=== PATIENT | female | born 1940 | race Caucasian/White ===

== ENCOUNTER → 2016-06-01 | Outpatient (REF) | payer MEDICARE ==
[2016-06-01 11:00] LABS: BASOPHILS % (AUTO) 0 % (0-2); EOSINOPHILS # (AUTO) 0.5 10^3uL; EOSINOPHILS % (AUTO) 3 % (0-4); LYMPHOCYTES # (AUTO) 0.9 X10^3; MEAN CORPUSCULAR VOLUME 81 FL (80-100); MEAN PLATELET VOLUME 10.3 FL (6.0-9.5); MONOCYTES # (AUTO) 1.7 X10^3; MONOCYTES % (AUTO) 11 % (3-11); NEUTROPHILS # (AUTO) 12.2 X10^3; NEUTROPHILS % (AUTO) 79 % (51-67); PLATELET COUNT 367 10^3uL (150-450); WHITE BLOOD COUNT 15.45 10^3uL (4.0-11.0)
[2016-06-01 11:08] LABS: ALBUMIN 2.8 g/dL (3.4-5.0); CALCULATED IONIZED CALCIUM 3.9 mg/dL (3.8-4.6); PHOSPHORUS 3.8 mg/dL (2.4-4.9); TOTAL PROTEIN 6.9 g/dL (6.4-8.5)
[2016-06-01 11:14] LABS: MEAN CORPUSCULAR HEMOGLOBIN 25.6 PG (26.0-34.0); MEAN CORPUSCULAR HGB CONC 31.6 g/dL (31.0-37.0)
== END ==
LOC: LAB 08:20
PROVIDERS: ATTEND Internal Medicine Hematology & Oncology
DX: C20 Malignant neoplasm of rectum (principal)
CPT/HCPCS: 80053; 83735; 84100; 84478; 85025

== ENCOUNTER → 2016-06-03 | Outpatient (REF) | payer MEDICARE ==
[~2016-06-03] MED LIST: ALBU8.5H2 IH; CEFD300C PO; DOCU100C8 PO; FLUT1DIS INH; FLUT1DIS2 IH; FURO-124 PO; LOSA1TAB19 PO; LSRT50T PO; MAGN400O7 PO; ONDA8TAB13 PO; OXYC1TAB12 PO; OXYC1TAB87 PO; POLY17PO2 PO; TRAM-25 PO
== END ==
LOC: LAB 15:36
PROVIDERS: ATTEND Family Medicine
DX: C20 Malignant neoplasm of rectum (principal)
CPT/HCPCS: 87040

== ENCOUNTER → 2016-06-07 | Outpatient (REF) | payer MEDICARE ==
[2016-06-07 09:39] LABS: MEAN CORPUSCULAR VOLUME 80 FL (80-100); MEAN PLATELET VOLUME 9.9 FL (6.0-9.5); PLATELET COUNT 535 10^3uL (150-450); WHITE BLOOD COUNT 13.95 10^3uL (4.0-11.0)
[2016-06-07 09:44] LABS: MEAN CORPUSCULAR HEMOGLOBIN 25.2 PG (26.0-34.0); MEAN CORPUSCULAR HGB CONC 31.6 g/dL (31.0-37.0)
[2016-06-07 09:46] LABS: BAND NEUTROPHILS % 4 % (0-6); EOSINOPHILS % 3 % (0-4); LYMPHOCYTES # 0.6 #; MONOCYTES # 0.8 #; MONOCYTES % 6 % (3-11); RBC MORPH SEE REFERENCE (NORMAL); SEGMENTED NEUTROPHILS % 83 % (51-67); TOTAL CELLS COUNTED 100
[2016-06-07 09:47] LABS: ALBUMIN 2.6 g/dL (3.4-5.0); ANISOCYTOSIS SLIGHT; CALCULATED IONIZED CALCIUM 3.7 mg/dL (3.8-4.6); PHOSPHORUS 3.8 mg/dL (2.4-4.9); POIKILOCYTOSIS SLIGHT; TOTAL PROTEIN 7.2 g/dL (6.4-8.5)
== END ==
LOC: LAB 08:27
PROVIDERS: ATTEND Internal Medicine Hematology & Oncology
DX: Z00.00 Encounter for general adult medical examination without abnormal findings (principal); C20 Malignant neoplasm of rectum; E63.8 Other specified nutritional deficiencies; Z99.89 Dependence on other enabling machines and devices
CPT/HCPCS: 80053; 83735; 84100; 84478; 85025

== ENCOUNTER → 2016-06-14 | Outpatient (REF) | payer MEDICARE ==
[2016-06-14 08:50] LABS: BASOPHILS % (AUTO) 0 % (0-2); EOSINOPHILS # (AUTO) 0.4 10^3uL; EOSINOPHILS % (AUTO) 3 % (0-4); LYMPHOCYTES # (AUTO) 1.4 X10^3; MEAN PLATELET VOLUME 9.8 FL (6.0-9.5); MONOCYTES # (AUTO) 1.7 X10^3; MONOCYTES % (AUTO) 11 % (3-11); NEUTROPHILS # (AUTO) 11.9 X10^3; NEUTROPHILS % (AUTO) 76 % (51-67); PLATELET COUNT 501 10^3uL (150-450); WHITE BLOOD COUNT 15.56 10^3uL (4.0-11.0)
[2016-06-14 09:04] LABS: MEAN CORPUSCULAR HEMOGLOBIN 24.8 PG (26.0-34.0); MEAN CORPUSCULAR HGB CONC 31.2 g/dL (31.0-37.0); MEAN CORPUSCULAR VOLUME 79 FL (80-100)
[2016-06-14 09:06] LABS: ALBUMIN 2.5 g/dL (3.4-5.0); ANION GAP 13.3 MEQ/L (3-15); CALCULATED IONIZED CALCIUM 3.8 mg/dL (3.8-4.6); PHOSPHORUS 3.6 mg/dL (2.4-4.9); TOTAL PROTEIN 6.9 g/dL (6.4-8.5)
== END ==
LOC: LAB 08:00
PROVIDERS: ATTEND Internal Medicine Hematology & Oncology
DX: Z00.00 Encounter for general adult medical examination without abnormal findings (principal); C20 Malignant neoplasm of rectum; E63.8 Other specified nutritional deficiencies; E44.0 Moderate protein-calorie malnutrition; Z99.89 Dependence on other enabling machines and devices
CPT/HCPCS: 80053; 83735; 84100; 84478; 85025

== ENCOUNTER → 2016-06-21 | Outpatient (REF) | payer MEDICARE ==
[2016-06-21 09:45] LABS: BASOPHILS % (AUTO) 0 % (0-2); EOSINOPHILS # (AUTO) 0.5 10^3uL; EOSINOPHILS % (AUTO) 4 % (0-4); LYMPHOCYTES # (AUTO) 1.3 X10^3; MEAN CORPUSCULAR HGB CONC 31.9 g/dL (31.0-37.0); MEAN PLATELET VOLUME 9.7 FL (6.0-9.5); MONOCYTES # (AUTO) 1.6 X10^3; MONOCYTES % (AUTO) 12 % (3-11); NEUTROPHILS # (AUTO) 9.6 X10^3; NEUTROPHILS % (AUTO) 73 % (51-67); PLATELET COUNT 502 10^3uL (150-450); WHITE BLOOD COUNT 13.16 10^3uL (4.0-11.0)
[2016-06-21 09:50] LABS: ALBUMIN 2.6 g/dL (3.4-5.0); ANION GAP 16.1 MEQ/L (3-15); CALCULATED IONIZED CALCIUM 3.8 mg/dL (3.8-4.6); PHOSPHORUS 3.8 mg/dL (2.4-4.9); TOTAL PROTEIN 7.3 g/dL (6.4-8.5)
[2016-06-21 10:03] LABS: MEAN CORPUSCULAR HEMOGLOBIN 24.7 PG (26.0-34.0); MEAN CORPUSCULAR VOLUME 78 FL (80-100)
== END ==
LOC: LAB 08:03
PROVIDERS: ATTEND Internal Medicine Hematology & Oncology
DX: Z00.00 Encounter for general adult medical examination without abnormal findings (principal); C20 Malignant neoplasm of rectum; Z79.899 Other long term (current) drug therapy; E63.8 Other specified nutritional deficiencies
CPT/HCPCS: 80053; 83735; 84100; 84478; 85025

== ENCOUNTER → 2016-06-23 | Outpatient (CLI) | payer MEDICARE | LOC: RAD 09:58 | PROVIDERS: ATTEND Internal Medicine Hematology & Oncology | DX: C20 Malignant neoplasm of rectum (principal) | CPT/HCPCS: 71250; 74176 ==

== ENCOUNTER 2016-06-28 15:17 | Outpatient (RCR) | payer MEDICARE ==
[2016-06-29] VITALS (12 sets, daily range): BP systolic 80–147; BP diastolic 51–83
[2016-06-29] MEDS ORDERED: SODIUM CHLORIDE FLUSH 10 ML SYR IV PRN (11:50)
[2016-06-29] MEDS ORDERED: LMX 4 KIT (LIDOCAINE 4% 5 GM TUBE/TRANSPARENT DRESSING) TOP PRN (11:50)
[2016-06-29] MEDS ORDERED: SODIUM CHLORIDE FLUSH 3 ML SYR IV PRN (11:50)
[2016-06-29] MEDS ORDERED: ACETAMINOPHEN 325 MG TAB (TYLENOL) PO SCH (12:00)
[2016-06-29] MEDS ORDERED: NS 250 ML (IVPB) BAG IV SCH (12:00)
[2016-06-29] MEDS ORDERED: diphenhydrAMINE 25 MG (BENADRYL) TABLET PO SCH (12:00)
--- NOTE | 2016-06-29 12:06 | NUR ---
1st unit of PRBCs started at 1206 at 125cc/hr. VS taken according to policy for transfusions. Pt had port accessed before her arrival to the unit. Lunch ordered for pt. Monitor applied. Tylenol and Benadryl po given as pre meds as ordered.
--- NOTE | 2016-06-29 14:20 | NUR ---
1st unit of PRBCs infused.
--- NOTE | 2016-06-29 14:25 | NUR ---
Second unit of PRBC's started at 1425 per pump infusing at 125cc/hr.
--- NOTE | 2016-06-29 15:25 | NUR ---
At 1525 pt had a bout of nausea, which she states she has everyday. BP went up to 147/83.
--- NOTE | 2016-06-29 16:30 | NUR ---
2nd unit of PRBCs infused. Port flushed with 13 cc of NS. Port was not de accessed due to pt receiving TPN everyday at home.
--- NOTE | 2016-06-29 16:50 | NUR ---
Pt left ambulatory to home with daughter.
== END 2016-06-29 16:50 | disposition home or self-care (01) ==
LOC: LAB 15:17 → ICU 06-29 11:35 → EUOP 06-29 16:50
PROVIDERS: ATTEND Internal Medicine Hematology & Oncology
DX: D64.9 Anemia, unspecified (principal)
CPT/HCPCS: 36415; 85014; 85018; 86850; 86900; 86901; 86920; A9270; J7050; P9040; 36430

== ENCOUNTER → 2016-06-28 | Outpatient (REF) | payer MEDICARE ==
[2016-06-28 08:55] LABS: BASOPHILS % (AUTO) 0 % (0-2); EOSINOPHILS # (AUTO) 0.6 10^3uL; EOSINOPHILS % (AUTO) 5 % (0-4); LYMPHOCYTES # (AUTO) 1.2 X10^3; MEAN PLATELET VOLUME 9.2 FL (6.0-9.5); MONOCYTES # (AUTO) 1.2 X10^3; MONOCYTES % (AUTO) 12 % (3-11); NEUTROPHILS # (AUTO) 7.4 X10^3; NEUTROPHILS % (AUTO) 70 % (51-67); PLATELET COUNT 530 10^3uL (150-450); WHITE BLOOD COUNT 10.64 10^3uL (4.0-11.0)
[2016-06-28 09:09] LABS: MEAN CORPUSCULAR HEMOGLOBIN 23.9 PG (26.0-34.0); MEAN CORPUSCULAR VOLUME 77 FL (80-100)
[2016-06-28 09:10] LABS: ALBUMIN 2.6 g/dL (3.4-5.0); ANION GAP 13.6 MEQ/L (3-15); CALCULATED IONIZED CALCIUM 3.9 mg/dL (3.8-4.6); PHOSPHORUS 3.6 mg/dL (2.4-4.9); TOTAL PROTEIN 7.3 g/dL (6.4-8.5)
== END ==
LOC: LAB 08:04
PROVIDERS: ATTEND Internal Medicine Hematology & Oncology
DX: Z00.00 Encounter for general adult medical examination without abnormal findings (principal); C20 Malignant neoplasm of rectum; E63.8 Other specified nutritional deficiencies; E44.0 Moderate protein-calorie malnutrition; Z99.89 Dependence on other enabling machines and devices
CPT/HCPCS: 80053; 83735; 84100; 84478; 85025

== ENCOUNTER → 2016-06-29 | Outpatient (CLI) | payer MEDICARE | LOC: LAB 10:20 | PROVIDERS: ATTEND Internal Medicine Hematology & Oncology | DX: C20 Malignant neoplasm of rectum (principal) | CPT/HCPCS: 36415; 82378; 82607; 82728; 82746; 83540; 83550 ==

== ENCOUNTER → 2016-07-05 | Outpatient (REF) | payer MEDICARE ==
[2016-07-05 09:01] LABS: BASOPHILS % (AUTO) 0 % (0-2); EOSINOPHILS # (AUTO) 0.5 10^3uL; EOSINOPHILS % (AUTO) 4 % (0-4); MEAN CORPUSCULAR HEMOGLOBIN 24.7 PG (26.0-34.0); MEAN CORPUSCULAR HGB CONC 32.2 g/dL (31.0-37.0); MEAN CORPUSCULAR VOLUME 77 FL (80-100); MEAN PLATELET VOLUME 9.4 FL (6.0-9.5); MONOCYTES # (AUTO) 1.3 X10^3; MONOCYTES % (AUTO) 11 % (3-11); NEUTROPHILS # (AUTO) 9.3 X10^3; NEUTROPHILS % (AUTO) 77 % (51-67); PLATELET COUNT 362 10^3uL (150-450); WHITE BLOOD COUNT 12.11 10^3uL (4.0-11.0)
[2016-07-05 09:14] LABS: ALBUMIN 2.7 g/dL (3.4-5.0); ANION GAP 13.7 MEQ/L (3-15); CALCULATED IONIZED CALCIUM 3.7 mg/dL (3.8-4.6); PHOSPHORUS 3.8 mg/dL (2.4-4.9); TOTAL PROTEIN 7.5 g/dL (6.4-8.5)
== END ==
LOC: LAB 08:07
PROVIDERS: ATTEND Internal Medicine Hematology & Oncology
DX: Z00.00 Encounter for general adult medical examination without abnormal findings (principal); E63.8 Other specified nutritional deficiencies; E44.0 Moderate protein-calorie malnutrition
CPT/HCPCS: 80053; 83735; 84100; 84478; 85025

== ENCOUNTER → 2016-07-12 | Outpatient (REF) | payer MEDICARE ==
[2016-07-12 09:11] LABS: MEAN CORPUSCULAR HGB CONC 32.6 g/dL (31.0-37.0); MEAN PLATELET VOLUME 9.7 FL (6.0-9.5); PLATELET COUNT 418 10^3uL (150-450); WHITE BLOOD COUNT 15.13 10^3uL (4.0-11.0)
[2016-07-12 09:12] LABS: MEAN CORPUSCULAR HEMOGLOBIN 25.1 PG (26.0-34.0); MEAN CORPUSCULAR VOLUME 77 FL (80-100)
[2016-07-12 09:19] LABS: BAND NEUTROPHILS % 2 % (0-6); EOSINOPHILS % 6 % (0-4); LYMPHOCYTES # 1.2 #; MONOCYTES # 1.4 #; MONOCYTES % 9 % (3-11); SEGMENTED NEUTROPHILS % 75 % (51-67); TOTAL CELLS COUNTED 100
[2016-07-12 09:20] LABS: ANISOCYTOSIS MODERATE; MICROCYTOSIS SLIGHT; RBC MORPH SEE REFERENCE (NORMAL)
[2016-07-12 09:23] LABS: ALBUMIN 2.5 g/dL (3.4-5.0); ANION GAP 12.5 MEQ/L (3-15); CALCULATED IONIZED CALCIUM 3.7 mg/dL (3.8-4.6); MAGNESIUM* 1.9 mg/dL (1.6-2.3); PHOSPHORUS 2.8 mg/dL (2.4-4.9); TOTAL PROTEIN 7.2 g/dL (6.4-8.5)
== END ==
LOC: LAB 08:04
PROVIDERS: ATTEND Internal Medicine Hematology & Oncology
DX: Z00.00 Encounter for general adult medical examination without abnormal findings (principal); Z79.899 Other long term (current) drug therapy; C20 Malignant neoplasm of rectum; E63.8 Other specified nutritional deficiencies; E44.0 Moderate protein-calorie malnutrition
CPT/HCPCS: 80053; 83735; 84100; 84478; 85025

== ENCOUNTER 2016-07-19 10:29 | Day surgery (SDC) | payer MEDICARE ==
[~2016-07-19] VITALS: Ht 167.6 cm; Wt 42.7 kg
[~2016-07-19 10:29] MED LIST changes: +ACETAMINOPHEN 500 MG TAB (TYLENOL) PO SCH; -ALBU8.5H2 IH; -CEFD300C PO; -DOCU100C8 PO; -FLUT1DIS INH; -FLUT1DIS2 IH; -FURO-124 PO; +LACTATED RINGERS 1,000 ML IV SCH; -LOSA1TAB19 PO; -LSRT50T PO; -MAGN400O7 PO; -ONDA8TAB13 PO; -OXYC1TAB12 PO; -OXYC1TAB87 PO; -POLY17PO2 PO; +SODIUM CHLORIDE FLUSH 3 ML SYR IV SCH; -TRAM-25 PO; +ceFAZolin 2,000 MG in SODIUM CHLORIDE VIAL (PF) 20 ML IV SCH; +oxyCODONE IMMEDIATE RELEASE 5 MG (OXYIR) TAB PO SCH
[2016-07-19 10:56] VITALS: BP 107/63
[2016-07-19] MEDS ORDERED: PROPOFOL 20 ML IV ONE ×2 (11:21)
[2016-07-19] MEDS ORDERED: ALFENTANIL 500 MCG/ML (ALFENTA) 5 ML AMP IV ONE (11:21)
[2016-07-19] MEDS ORDERED: MIDAZOLAM 2 MG/2 ML (VERSED) VIAL ONE (11:21)
[2016-07-19] MEDS ORDERED: BUPIVACAINE/EPINEPHRINE 0.25%-1:200,000 (MARCAINE) 30 ML VIAL INJ ONE (11:32)
[2016-07-19] MEDS ORDERED: HEPARIN 5000 UNIT/0.5 ML SYRINGE ONE (11:32)
[2016-07-19] MEDS ORDERED: LIDOCAINE/EPINEPHRINE 1% 1:100,000 (XYLOCAINE) 30 ML VIAL INJ ONE (11:32)
[2016-07-19] MEDS ORDERED: ONDANSETRON 2 MG/ML (Z0FRAN) 2 ML VIAL ONE (12:19)
[2016-07-19] MEDS ORDERED: diphenhydrAMINE 50 MG/ML INJ (BENADRYL) ONE (12:19)
[2016-07-19] MEDS ORDERED: BACITRACIN/POLYMYXIN OINTMENT 1 PACKET TOP ONE (13:12)
[2016-07-19 13:27] VITALS: BP 86/60
[2016-07-19] MEDS ORDERED: ONDANSETRON 2 MG/ML (Z0FRAN) 2 ML VIAL IV PRN (14:21)
[2016-07-19] MEDS ORDERED: HYDROcodone/APAP 5 MG/325 MG (NORCO) TAB PO PRN (14:21)
[2016-07-19 14:27] VITALS: BP 123/73
== END 2016-07-19 14:46 | disposition home or self-care (01) ==
LOC: ASC 10:29
PROVIDERS: ATTEND Surgery
DX: T82.514A Breakdown (mechanical) of infusion catheter, initial encounter (principal); I10 Essential (primary) hypertension; J44.9 Chronic obstructive pulmonary disease, unspecified; K21.9 Gastro-esophageal reflux disease without esophagitis; Y83.8 Other surgical procedures as the cause of abnormal reaction of the patient, or of later complication, without mention of misadventure at the time of the procedure; Z85.048 Personal history of other malignant neoplasm of rectum, rectosigmoid junction, and anus
CPT/HCPCS: 36558; 36590; 77001; A9270; J0690; J1200; J1644; J2250; J7050; J7120

== ENCOUNTER → 2016-07-20 | Outpatient (REF) | payer MEDICARE ==
[2016-07-20 11:06] LABS: ALBUMIN 2.8 g/dL (3.4-5.0); ANION GAP 11.5 MEQ/L (3-15); CALCULATED IONIZED CALCIUM 3.5 mg/dL (3.8-4.6); PHOSPHORUS 2.8 mg/dL (2.4-4.9); TOTAL PROTEIN 7.8 g/dL (6.4-8.5)
[2016-07-20 11:25] LABS: MEAN CORPUSCULAR HEMOGLOBIN 25.7 PG (26.0-34.0); MEAN CORPUSCULAR HGB CONC 31.7 g/dL (31.0-37.0)
== END ==
LOC: LAB 08:59
PROVIDERS: ATTEND Internal Medicine Hematology & Oncology
DX: Z00.00 Encounter for general adult medical examination without abnormal findings (principal); C20 Malignant neoplasm of rectum; E63.8 Other specified nutritional deficiencies; Z99.89 Dependence on other enabling machines and devices
CPT/HCPCS: 80053; 83735; 84100; 84478; 85027

== ENCOUNTER → 2016-07-26 | Outpatient (REF) | payer MEDICARE | LOC: LAB 10:36 | PROVIDERS: ATTEND Internal Medicine Hematology & Oncology | DX: Z53.8 Procedure and treatment not carried out for other reasons (principal) ==

== ENCOUNTER → 2016-07-26 | Outpatient (REF) | payer MEDICARE ==
[2016-07-26 10:59] LABS: BASOPHILS % (AUTO) 0 % (0-2); EOSINOPHILS # (AUTO) 0.5 10^3uL; EOSINOPHILS % (AUTO) 6 % (0-4); LYMPHOCYTES # (AUTO) 1.1 X10^3; MEAN CORPUSCULAR VOLUME 82 FL (80-100); MEAN PLATELET VOLUME 10.3 FL (6.0-9.5); MONOCYTES # (AUTO) 1.1 X10^3; MONOCYTES % (AUTO) 14 % (3-11); NEUTROPHILS # (AUTO) 4.9 X10^3; NEUTROPHILS % (AUTO) 64 % (51-67); PLATELET COUNT 312 10^3uL (150-450); WHITE BLOOD COUNT 7.73 10^3uL (4.0-11.0)
[2016-07-26 11:06] LABS: ALBUMIN 2.9 g/dL (3.4-5.0); ANION GAP 11.3 MEQ/L (3-15); CALCULATED IONIZED CALCIUM 3.6 mg/dL (3.8-4.6)
[2016-07-26 11:16] LABS: MEAN CORPUSCULAR HEMOGLOBIN 25.3 PG (26.0-34.0)
== END ==
LOC: LAB 09:57
PROVIDERS: ATTEND Internal Medicine Hematology & Oncology
DX: Z00.00 Encounter for general adult medical examination without abnormal findings (principal); Z99.89 Dependence on other enabling machines and devices; C20 Malignant neoplasm of rectum; E63.8 Other specified nutritional deficiencies; E75.6 Lipid storage disorder, unspecified
CPT/HCPCS: 80053; 80061; 83735; 84100; 84478; 85025

== ENCOUNTER → 2016-08-02 | Outpatient (REF) | payer MEDICARE ==
[2016-08-02 09:13] LABS: MEAN CORPUSCULAR VOLUME 84 FL (80-100); MEAN PLATELET VOLUME 10.4 FL (6.0-9.5); PLATELET COUNT 330 10^3uL (150-450); WHITE BLOOD COUNT 6.12 10^3uL (4.0-11.0)
[2016-08-02 09:17] LABS: MEAN CORPUSCULAR HEMOGLOBIN 26.3 PG (26.0-34.0); MEAN CORPUSCULAR HGB CONC 31.5 g/dL (31.0-37.0)
[2016-08-02 09:28] LABS: ALBUMIN 2.8 g/dL (3.4-5.0); CALCULATED IONIZED CALCIUM 3.6 mg/dL (3.8-4.6); MAGNESIUM* 1.9 mg/dL (1.6-2.3); PHOSPHORUS 2.5 mg/dL (2.4-4.9); TOTAL PROTEIN 7.6 g/dL (6.4-8.5)
[2016-08-02 10:03] LABS: ANISOCYTOSIS MARKED; BAND NEUTROPHILS % 2 % (0-6); EOSINOPHILS % 6 % (0-4); LYMPHOCYTES # 1.3 #; MONOCYTES # 0.7 #; MONOCYTES % 12 % (3-11); RBC MORPH SEE REFERENCE (NORMAL); SEGMENTED NEUTROPHILS % 58 % (51-67); TOTAL CELLS COUNTED 100
== END ==
LOC: LAB 08:31
PROVIDERS: ATTEND Internal Medicine Hematology & Oncology
DX: Z00.00 Encounter for general adult medical examination without abnormal findings (principal); C20 Malignant neoplasm of rectum; E63.8 Other specified nutritional deficiencies; Z99.89 Dependence on other enabling machines and devices
CPT/HCPCS: 80053; 83735; 84100; 84478; 85025

== ENCOUNTER → 2016-08-09 | Outpatient (REF) | payer MEDICARE ==
[2016-08-09 08:57] LABS: BASOPHILS % (AUTO) 0 % (0-2); EOSINOPHILS # (AUTO) 0.1 10^3uL; EOSINOPHILS % (AUTO) 1 % (0-4); LYMPHOCYTES # (AUTO) 1.4 X10^3; MEAN CORPUSCULAR VOLUME 85 FL (80-100); MEAN PLATELET VOLUME 10.1 FL (6.0-9.5); MONOCYTES # (AUTO) 1.3 X10^3; MONOCYTES % (AUTO) 15 % (3-11); NEUTROPHILS # (AUTO) 5.8 X10^3; NEUTROPHILS % (AUTO) 68 % (51-67); PLATELET COUNT 306 10^3uL (150-450); WHITE BLOOD COUNT 8.53 10^3uL (4.0-11.0)
[2016-08-09 09:02] LABS: CALCULATED IONIZED CALCIUM 3.7 mg/dL (3.8-4.6); MAGNESIUM* 1.9 mg/dL (1.6-2.3); PHOSPHORUS 2.4 mg/dL (2.4-4.9); TOTAL PROTEIN 7.5 g/dL (6.4-8.5)
[2016-08-09 09:28] LABS: MEAN CORPUSCULAR HEMOGLOBIN 26.6 PG (26.0-34.0); MEAN CORPUSCULAR HGB CONC 31.2 g/dL (31.0-37.0)
== END ==
LOC: LAB 08:40
PROVIDERS: ATTEND Internal Medicine Hematology & Oncology
DX: Z00.00 Encounter for general adult medical examination without abnormal findings (principal); Z99.89 Dependence on other enabling machines and devices; C20 Malignant neoplasm of rectum; E63.8 Other specified nutritional deficiencies
CPT/HCPCS: 80053; 83735; 84100; 84478; 85025

== ENCOUNTER → 2016-08-16 | Outpatient (REF) | payer MEDICARE ==
[2016-08-16 20:23] LABS: BASOPHILS % (AUTO) 0 % (0-2); EOSINOPHILS # (AUTO) 0.2 10^3uL; EOSINOPHILS % (AUTO) 2 % (0-4); LYMPHOCYTES # (AUTO) 1.3 X10^3; MEAN CORPUSCULAR HEMOGLOBIN 27.3 PG (26.0-34.0); MEAN CORPUSCULAR VOLUME 87 FL (80-100); MEAN PLATELET VOLUME 11.2 FL (6.0-9.5); MONOCYTES # (AUTO) 1.3 X10^3; MONOCYTES % (AUTO) 14 % (3-11); NEUTROPHILS # (AUTO) 6.2 X10^3; NEUTROPHILS % (AUTO) 69 % (51-67); PLATELET COUNT 290 10^3uL (150-450); WHITE BLOOD COUNT 9.02 10^3uL (4.0-11.0)
[2016-08-16 20:49] LABS: MEAN CORPUSCULAR HGB CONC 31.4 g/dL (31.0-37.0)
== END ==
LOC: LAB 19:32
PROVIDERS: ATTEND Internal Medicine Hematology & Oncology
DX: C20 Malignant neoplasm of rectum (principal)
CPT/HCPCS: 85025

== ENCOUNTER → 2016-08-16 | Outpatient (REF) | payer MEDICARE ==
[2016-08-16 09:41] LABS: ANION GAP 12.2 MEQ/L (3-15); CALCULATED IONIZED CALCIUM 3.9 mg/dL (3.8-4.6); PHOSPHORUS 2.8 mg/dL (2.4-4.9)
== END ==
LOC: LAB 07:51
PROVIDERS: ATTEND Internal Medicine Hematology & Oncology
DX: E63.8 Other specified nutritional deficiencies (principal); C20 Malignant neoplasm of rectum; E75.6 Lipid storage disorder, unspecified
CPT/HCPCS: 80053; 80061; 83735; 84100

== ENCOUNTER → 2016-08-23 | Outpatient (REF) | payer MEDICARE ==
[2016-08-23 09:06] LABS: BASOPHILS % (AUTO) 0 % (0-2); EOSINOPHILS # (AUTO) 0.3 10^3uL; EOSINOPHILS % (AUTO) 5 % (0-4); LYMPHOCYTES # (AUTO) 0.9 X10^3; MEAN CORPUSCULAR HEMOGLOBIN 27.6 PG (26.0-34.0); MEAN CORPUSCULAR VOLUME 89 FL (80-100); MEAN PLATELET VOLUME 10.9 FL (6.0-9.5); MONOCYTES # (AUTO) 0.8 X10^3; MONOCYTES % (AUTO) 15 % (3-11); NEUTROPHILS # (AUTO) 3.3 X10^3; NEUTROPHILS % (AUTO) 61 % (51-67); PLATELET COUNT 264 10^3uL (150-450); WHITE BLOOD COUNT 5.36 10^3uL (4.0-11.0)
[2016-08-23 11:00] LABS: ANION GAP 10.4 MEQ/L (3-15); CALCULATED IONIZED CALCIUM 3.6 mg/dL (3.8-4.6); MAGNESIUM* 1.9 mg/dL (1.6-2.3); PHOSPHORUS 3.7 mg/dL (2.4-4.9); TOTAL PROTEIN 7.3 g/dL (6.4-8.5)
== END ==
LOC: LAB 08:59
PROVIDERS: ATTEND Internal Medicine Hematology & Oncology
DX: Z00.00 Encounter for general adult medical examination without abnormal findings (principal); C20 Malignant neoplasm of rectum; E63.8 Other specified nutritional deficiencies; Z99.89 Dependence on other enabling machines and devices
CPT/HCPCS: 80053; 83735; 84100; 84478; 85025

== ENCOUNTER → 2016-08-30 | Outpatient (REF) | payer MEDICARE ==
[~2016-08-30] MED LIST changes: -ACETAMINOPHEN 500 MG TAB (TYLENOL) PO SCH; +ALBU8.5H2 IH; +CEFD300C PO; +DOCU100C8 PO; +FLUT1DIS INH; +FLUT1DIS2 IH; +FURO-124 PO; -LACTATED RINGERS 1,000 ML IV SCH; +LOSA1TAB19 PO; +LSRT50T PO; +MAGN400O7 PO; +ONDA8TAB13 PO; +OXYC1TAB12 PO; +OXYC1TAB87 PO; +POLY17PO2 PO; -SODIUM CHLORIDE FLUSH 3 ML SYR IV SCH; +TRAM-25 PO; -ceFAZolin 2,000 MG in SODIUM CHLORIDE VIAL (PF) 20 ML IV SCH; -oxyCODONE IMMEDIATE RELEASE 5 MG (OXYIR) TAB PO SCH
[2016-08-30 08:59] LABS: MEAN CORPUSCULAR HEMOGLOBIN 28.5 PG (26.0-34.0); MEAN CORPUSCULAR VOLUME 89 FL (80-100); MEAN PLATELET VOLUME 10.3 FL (6.0-9.5); PLATELET COUNT 296 10^3uL (150-450); WHITE BLOOD COUNT 5.44 10^3uL (4.0-11.0)
[2016-08-30 09:01] LABS: BAND NEUTROPHILS % 0 % (0-6); EOSINOPHILS % 4 % (0-4); LYMPHOCYTES # 1.4 #; MONOCYTES # 0.3 #; MONOCYTES % 6 % (3-11); SEGMENTED NEUTROPHILS % 65 % (51-67); TOTAL CELLS COUNTED 100
[2016-08-30 09:02] LABS: RBC MORPH NORMAL (NORMAL)
[2016-08-30 09:16] LABS: ALBUMIN 3.1 g/dL (3.4-5.0); ANION GAP 14.7 MEQ/L (3-15); TOTAL PROTEIN 7.2 g/dL (6.4-8.5)
== END ==
LOC: LAB 08:44
PROVIDERS: ATTEND Internal Medicine Hematology & Oncology
DX: Z00.00 Encounter for general adult medical examination without abnormal findings (principal); Z99.89 Dependence on other enabling machines and devices; C20 Malignant neoplasm of rectum; E63.8 Other specified nutritional deficiencies
CPT/HCPCS: 80053; 83735; 84100; 84478; 85025

== ENCOUNTER → 2016-09-06 | Outpatient (REF) | payer MEDICARE ==
[2016-09-06 08:32] LABS: BASOPHILS % (AUTO) 0 % (0-2); EOSINOPHILS # (AUTO) 0.3 10^3uL; EOSINOPHILS % (AUTO) 4 % (0-4); LYMPHOCYTES # (AUTO) 2.2 X10^3; MEAN CORPUSCULAR HEMOGLOBIN 28.5 PG (26.0-34.0); MEAN CORPUSCULAR HGB CONC 32.1 g/dL (31.0-37.0); MEAN CORPUSCULAR VOLUME 89 FL (80-100); MEAN PLATELET VOLUME 10.4 FL (6.0-9.5); MONOCYTES % (AUTO) 14 % (3-11); NEUTROPHILS # (AUTO) 3.8 X10^3; NEUTROPHILS % (AUTO) 51 % (51-67); PLATELET COUNT 314 10^3uL (150-450); WHITE BLOOD COUNT 7.36 10^3uL (4.0-11.0)
[2016-09-06 09:09] LABS: ALBUMIN 3.4 g/dL (3.4-5.0); ANION GAP 15.6 MEQ/L (3-15); CALCULATED IONIZED CALCIUM 3.9 mg/dL (3.8-4.6); PHOSPHORUS 3.8 mg/dL (2.4-4.9); TOTAL PROTEIN 7.6 g/dL (6.4-8.5)
== END ==
LOC: LAB 08:01
PROVIDERS: ATTEND Internal Medicine Hematology & Oncology
DX: C20 Malignant neoplasm of rectum (principal); E63.8 Other specified nutritional deficiencies
CPT/HCPCS: 80053; 83735; 84100; 84478; 85025

== ENCOUNTER → 2016-09-13 | Outpatient (REF) | payer MEDICARE ==
[2016-09-13 08:46] LABS: BASOPHILS % (AUTO) 0 % (0-2); EOSINOPHILS # (AUTO) 0.2 10^3uL; EOSINOPHILS % (AUTO) 3 % (0-4); LYMPHOCYTES # (AUTO) 1.8 X10^3; MEAN CORPUSCULAR HEMOGLOBIN 28.8 PG (26.0-34.0); MEAN CORPUSCULAR HGB CONC 32.2 g/dL (31.0-37.0); MEAN CORPUSCULAR VOLUME 89 FL (80-100); MEAN PLATELET VOLUME 10.6 FL (6.0-9.5); MONOCYTES # (AUTO) 0.9 X10^3; MONOCYTES % (AUTO) 14 % (3-11); NEUTROPHILS # (AUTO) 3.1 X10^3; NEUTROPHILS % (AUTO) 52 % (51-67); PLATELET COUNT 242 10^3uL (150-450); WHITE BLOOD COUNT 6.01 10^3uL (4.0-11.0)
[2016-09-13 09:16] LABS: ALBUMIN 3.3 g/dL (3.4-5.0); ANION GAP 13.8 MEQ/L (3-15); PHOSPHORUS 3.8 mg/dL (2.4-4.9); TOTAL PROTEIN 7.3 g/dL (6.4-8.5)
== END ==
LOC: LAB 08:30
PROVIDERS: ATTEND Internal Medicine Hematology & Oncology
DX: Z00.00 Encounter for general adult medical examination without abnormal findings (principal); Z99.89 Dependence on other enabling machines and devices; C20 Malignant neoplasm of rectum; E63.8 Other specified nutritional deficiencies; E75.6 Lipid storage disorder, unspecified
CPT/HCPCS: 80053; 80061; 83735; 84100; 84478; 85025

== ENCOUNTER → 2016-09-15 | Outpatient (CLI) | payer MEDICARE ==
--- NOTE | 2016-09-15 13:28 | Diagnostic Imaging Report ---
PROCEDURE: CT chest pelvis with and abdomen with and without contrast. TECHNIQUE: Multiple contiguous axial images were obtained through the chest, abdomen and pelvis after uneventful bolus administration of intravenous contrast. Precontrast acquisitions were acquired through the abdomen. DATE: September 15, 2016. COMPARISON: CT chest, abdomen, and pelvis, September 23, 2015. INDICATION: A 76-year-old female, history of rectal cancer. FINDINGS: There is mild tree-in-bud nodularity in the right lower lobe on axial image 50 which is more prominent since comparison exam. Mild tree-in-bud nodularity in the right lower lobe on image 48 is also more prominent since comparison exam. There are additional scattered areas of reticulonodularity, predominantly peripheral in location which are also a change since the comparison exam. These include the right upper lobe and left upper lobe as illustrated on axial image 12 as one example. These areas are also noted in the lingula and the left lower lobe such as on axial image 43. There are redemonstrated changes of emphysema. There are no additional areas of focal airspace consolidation. There is no pneumothorax. There is no pleural effusion. The central airways are patent. There is no identified central pulmonary embolus. The main pulmonary artery is not enlarged. The heart is not enlarged. There is no pericardial effusion. There is no abnormally enlarged mediastinal, hilar, or axillary lymph node which meets CT size criteria for adenopathy. The liver is normal in size and contour. There is no identified liver lesion. The main, right, and left portal vein are patent. The gallbladder is moderately distended. There is high-attenuation material within the gallbladder lumen, compatible with sludge and/or stones. There is mild intrahepatic bile duct dilation. The common bile duct is not dilated. There appears to be conventional pancreatic ductal anatomy. The main pancreatic duct is not dilated. The pancreatic parenchyma is unremarkable. The spleen is normal in size. The adrenal glands are unremarkable. Unremarkable appearance of the renal parenchyma. The urinary collecting systems are not distended. There is no identified renal or ureteral stone. The urinary bladder is not well seen and likely collapsed. There are sutures at the level of the rectosigmoid junction. There is a left lower quadrant colostomy. 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 There are abnormally distended fluid-filled segments of small bowel which measure up to roughly 5.2 cm in diameter as measured on axial image 95. There are air-fluid levels present. There is abnormal thickening and wall enhancement of small bowel loops centered in the pelvis just to the left of midline such as on axial image 111 and adjacent sequential images. There is an irregularly shaped gas and fluid-containing area in the pelvis posteriorly on axial image 109 which measures 4.3 x 7.4 cm in axial dimension and 6.3 cm in craniocaudal extent. On sequential images, this may potentially relate to a grossly abnormal segment of small bowel with areas of marked wall thickening. It is difficult to state that the area is definitely contiguous with bowel, however. This is in an area of markedly abnormal wall thickening of bowel on comparison exam. There is a low-attenuation right inguinal lymph node on axial image 116 measuring 13 mm in short axis which previously measured 11 mm in short axis. There is no free intraperitoneal air. There is no free pelvic fluid. There is chondrocalcinosis at the pubic symphysis. There is a minimally displaced fracture of the right pubic bones subjacent to the pubic symphysis which is a new finding since September 23, 2015. There is some productive bone formation suggesting this may be subacute in age. There is a visible fracture line. There are bilateral sacral fractures which are likely insufficiency related and a change since comparison exam. There is sclerosis subjacent to the fracture line suggesting this is not acute in age and may be a subacute finding. There are multilevel degenerative changes of the spine. There is no identified bone lesion suspicious for metastatic disease. IMPRESSION: CT CHEST, ABDOMEN AND PELVIS. 1. Very irregularly shaped gas and fluid-containing area in the posterior pelvis which is favored to represent a grossly abnormal segment of small bowel with marked areas of abnormal bowel wall thickening suspicious for malignant process. It is difficult to definitively state that this area is contiguous with bowel, although this would be the favored consideration. There are abnormally fluid-filled segments of distended small bowel with air-fluid levels, most compatible with distal small bowel obstruction. This may relate to the above-mentioned irregular segment of small bowel. There are also additional areas of abnormal small bowel wall thickening in the pelvis which potentially could be neoplastic related, although is not specific. 2. A 13 mm short axis low-attenuation right inguinal lymph node which is mildly increased in size since comparison exam and potentially could relate to a site of metastatic yann disease. 3. Peripheral areas of reticulonodularity and tree-in-bud nodularity in the lungs which are change since comparison exam. Most typically, this would relate to an infectious bronchiolitis or other process spreading via endobronchial means. This is an uncommon pattern for metastatic disease. 4. Bilateral sacral insufficiency fractures which appear likely subacute in age. These are a change since comparison exam. There is also a more subacute-appearing fracture of the right pubic bones subjacent to the pubic symphysis which also may be insufficiency related. This also is an interval change since comparison CT. Dictated by: Dictated on workstation # [id number]
== END ==
LOC: RAD 10:53
PROVIDERS: ATTEND Internal Medicine Hematology & Oncology
DX: C20 Malignant neoplasm of rectum (principal)
CPT/HCPCS: 71260; 74178; Q9967

== ENCOUNTER → 2016-09-20 | Outpatient (REF) | payer MEDICARE ==
[2016-09-20 09:00] LABS: MEAN CORPUSCULAR HEMOGLOBIN 28.6 PG (26.0-34.0); MEAN CORPUSCULAR VOLUME 91 FL (80-100); MEAN PLATELET VOLUME 10.3 FL (6.0-9.5); PLATELET COUNT 231 10^3uL (150-450); WHITE BLOOD COUNT 5.46 10^3uL (4.0-11.0)
[2016-09-20 09:07] LABS: MEAN CORPUSCULAR HGB CONC 31.6 g/dL (31.0-37.0)
[2016-09-20 09:20] LABS: ALBUMIN 3.4 g/dL (3.4-5.0); ANION GAP 14.5 MEQ/L (3-15); CALCULATED IONIZED CALCIUM 4.2 mg/dL (3.8-4.6); TOTAL PROTEIN 7.2 g/dL (6.4-8.5)
[2016-09-20 09:30] LABS: ANISOCYTOSIS SLIGHT; BAND NEUTROPHILS % 1 % (0-6); EOSINOPHILS % 5 % (0-4); LYMPHOCYTES # 1.5 #; MONOCYTES # 0.7 #; MONOCYTES % 13 % (3-11); RBC MORPH SEE REFERENCE (NORMAL); SEGMENTED NEUTROPHILS % 53 % (51-67); TOTAL CELLS COUNTED 100
== END ==
LOC: LAB 08:18
PROVIDERS: ATTEND Internal Medicine Hematology & Oncology
DX: Z00.00 Encounter for general adult medical examination without abnormal findings (principal); C20 Malignant neoplasm of rectum; E63.8 Other specified nutritional deficiencies; Z99.89 Dependence on other enabling machines and devices
CPT/HCPCS: 80053; 83735; 84100; 84478; 85025

== ENCOUNTER → 2016-09-27 | Outpatient (REF) | payer MEDICARE ==
[2016-09-27 08:51] LABS: MEAN CORPUSCULAR HEMOGLOBIN 29.2 PG (26.0-34.0); MEAN CORPUSCULAR HGB CONC 32.2 g/dL (31.0-37.0); MEAN CORPUSCULAR VOLUME 91 FL (80-100); MEAN PLATELET VOLUME 10.3 FL (6.0-9.5); PLATELET COUNT 228 10^3uL (150-450)
[2016-09-27 09:14] LABS: BAND NEUTROPHILS % 1 % (0-6); EOSINOPHILS % 2 % (0-4); LYMPHOCYTES # 0.7 #; MONOCYTES # 0.5 #; MONOCYTES % 10 % (3-11); RBC MORPH NORMAL (NORMAL); SEGMENTED NEUTROPHILS % 73 % (51-67); TOTAL CELLS COUNTED 100
[2016-09-27 09:15] LABS: ALBUMIN 3.3 g/dL (3.4-5.0); ANION GAP 14.6 MEQ/L (3-15); CALCULATED IONIZED CALCIUM 4.2 mg/dL (3.8-4.6)
== END ==
LOC: LAB 08:17
PROVIDERS: ATTEND Internal Medicine Hematology & Oncology
DX: Z00.00 Encounter for general adult medical examination without abnormal findings (principal); Z99.89 Dependence on other enabling machines and devices; C20 Malignant neoplasm of rectum; E63.8 Other specified nutritional deficiencies
CPT/HCPCS: 80053; 83735; 84100; 84478; 85025

== ENCOUNTER → 2016-10-04 | Outpatient (REF) | payer MEDICARE ==
[2016-10-04 08:49] LABS: BASOPHILS % (AUTO) 0 % (0-2); EOSINOPHILS % (AUTO) 0 % (0-4); LYMPHOCYTES # (AUTO) 1.5 X10^3; MEAN CORPUSCULAR HEMOGLOBIN 29.4 PG (26.0-34.0); MEAN CORPUSCULAR HGB CONC 32.9 g/dL (31.0-37.0); MEAN CORPUSCULAR VOLUME 89 FL (80-100); MEAN PLATELET VOLUME 10.3 FL (6.0-9.5); MONOCYTES # (AUTO) 1.2 X10^3; MONOCYTES % (AUTO) 11 % (3-11); NEUTROPHILS # (AUTO) 7.7 X10^3; NEUTROPHILS % (AUTO) 74 % (51-67); PLATELET COUNT 327 10^3uL (150-450); WHITE BLOOD COUNT 10.38 10^3uL (4.0-11.0)
[2016-10-04 09:01] LABS: ANION GAP 19.4 MEQ/L (3-15); CALCULATED IONIZED CALCIUM 4.2 mg/dL (3.8-4.6); MAGNESIUM* 2.2 mg/dL (1.6-2.3); TOTAL PROTEIN 8.3 g/dL (6.4-8.5)
== END ==
LOC: LAB 08:25
PROVIDERS: ATTEND Internal Medicine Hematology & Oncology
DX: Z00.00 Encounter for general adult medical examination without abnormal findings (principal); C20 Malignant neoplasm of rectum; E63.8 Other specified nutritional deficiencies; Z99.89 Dependence on other enabling machines and devices
CPT/HCPCS: 80053; 83735; 84100; 84478; 85025

== ENCOUNTER → 2016-10-11 | Outpatient (CLI) | payer MEDICARE ==
--- NOTE | 2016-10-11 20:40 | Diagnostic Imaging Report ---
Clinical indication: Patient with sacral fracture. Patient has hip pain. Patient has artifact from colostomy. Exam: MRI of the pelvis performed with 9 cc of ProHance IV contrast. Sequences include axial T1 fat-sat post IV contrast, coronal T1 fat-sat post IV contrast, and sagittal T1 fat-sat post IV contrast. Comparison: CT scan of the chest, abdomen, and pelvis dated 09/15/2016. Findings: There is marked enhancement involving the bilateral sacral alar regions consistent with the patient's history of bilateral sacral fractures. No masslike enhancement is seen. There is also enhancement of the superior right pubic bone and medial inferior right pubic bone and medial left pubic bone. The right pubic bone findings are likely related to the fracture noted in the region. An underlying mass is difficult given the bony irregularity involving the medial pubic bone region. Enhancement involving the medial left pubic bone may be from degenerative marrow edema or occult fracture. There is no masslike expansile changes seen. There is a 6 mm focal area of enhancement involving the left greater tuberosity region which is slightly sclerotic on the prior CT scan. This finding is nonspecific, but a focus of metastasis cannot be completely excluded. There are large amounts of stool in the rectosigmoid region. The bladder is partially fluid-filled with no gross abnormality. There is a 21 mm x 13 mm rounded structure in the right groin region which is seen on the prior CT. There is only peripheral enhancement in this region and this is suspected to represent a small fluid collection or lymphocele. This does not have the typical appearance of a lymph node. IMPRESSION: 1. Bilateral sacral alar fractures with associated enhancement. There are no gross masslike expansile changes seen. 2: There is enhancement of the bilateral pubic bone regions. This correlates to the fracture of the right pubic bone region. The left pubic bone enhancement may be due to occult fracture versus degenerative edema. There are no expansile masslike changes seen. 3: There is a 6 mm focal area of enhancement in the left greater tuberosity which demonstrates sclerosis on the CT. This finding is nonspecific and may represent intraosseous hemangioma or a metastatic lesion. 4: Suspected small fluid collection or lymphocele and less likely a prominent lymph node in the anterior right groin region. Dictated by: Dictated on workstation # [id number]
== END ==
LOC: RAD 16:58
PROVIDERS: ATTEND Internal Medicine Hematology & Oncology
DX: S32.19XA Other fracture of sacrum, initial encounter for closed fracture (principal); X58.XXXA Exposure to other specified factors, initial encounter
CPT/HCPCS: 72196; A9579

== ENCOUNTER → 2016-10-11 | Outpatient (REF) | payer MEDICARE ==
[2016-10-11 09:35] LABS: MEAN CORPUSCULAR HEMOGLOBIN 29.3 PG (26.0-34.0); MEAN CORPUSCULAR HGB CONC 32.2 g/dL (31.0-37.0); MEAN CORPUSCULAR VOLUME 91 FL (80-100); MEAN PLATELET VOLUME 10.3 FL (6.0-9.5); PLATELET COUNT 245 10^3uL (150-450); WHITE BLOOD COUNT 4.93 10^3uL (4.0-11.0)
[2016-10-11 09:43] LABS: ALBUMIN 3.4 g/dL (3.4-5.0); CALCULATED IONIZED CALCIUM 4.1 mg/dL (3.8-4.6); MAGNESIUM* 2.1 mg/dL (1.6-2.3)
[2016-10-11 09:44] LABS: BAND NEUTROPHILS % 0 % (0-6); EOSINOPHILS % 1 % (0-4); MONOCYTES # 0.2 #; MONOCYTES % 6 % (3-11); RBC MORPH NORMAL (NORMAL); SEGMENTED NEUTROPHILS % 73 % (51-67); TOTAL CELLS COUNTED 100
== END ==
LOC: LAB 08:45
PROVIDERS: ATTEND Internal Medicine Hematology & Oncology
DX: Z00.00 Encounter for general adult medical examination without abnormal findings (principal); C20 Malignant neoplasm of rectum; Z99.89 Dependence on other enabling machines and devices; E63.8 Other specified nutritional deficiencies
CPT/HCPCS: 80053; 83735; 84100; 84478; 85007; 85025